=== PATIENT | female | born 1990 | race Hispanic/Latino ===

== ENCOUNTER 2019-02-01 02:26 | Emergency (ER) | payer SELFPAY ==
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
== END 2019-02-01 03:31 | disposition home or self-care (01) ==
LOC: ER 02:26
DX: F19.10 Other psychoactive substance abuse, uncomplicated (principal); X78.8XXA Intentional self-harm by other sharp object, initial encounter
CPT/HCPCS: 99283